=== PATIENT | female | born 1955 | race Caucasian/White ===

== ENCOUNTER 2022-12-03 14:31 | Emergency (ER) | payer MEDICARE, OTHER ==
[2022-12-03 14:47] VITALS: RESP 18; TEMP 98.2
[2022-12-03 15:34] LABS: Basophils % (A) 1 %; Eosinophils # (A) 0.2 k/uL (0-0.7); Eosinophils % (A) 3 %; HCT 38.6 % (34.0-46.0); HGB 13.2 gm/dL (11.4-16.0); Lymphocytes # (A) 2.3 k/uL (1.0-4.8); Lymphocytes % (A) 39 %; MCH 33.6 pg (25.0-35.0); MCHC 34.2 g/dL (31.0-37.0); MCV 98.1 fL (80.0-100.0); Mean Platelet Volume 7.4; Monocytes # (A) 0.3 k/uL (0-1.0); Monocytes % (A) 6 %; Neutrophils # (A) 2.9 k/uL (1.3-7.7); Neutrophils % (A) 49 %; Platelet Count 162 k/uL (150-450); RBC 3.93 m/uL (3.80-5.40); RDW 13.1 % (11.5-15.5); WBC 5.8 k/uL (3.8-10.6)
[2022-12-03] MEDS ORDERED: oxyCODONE-APAP 10-325MG 1 EACH TAB PO STA (15:43)
[2022-12-03 15:45] LABS: ALT 13 U/L (4-34); AST 21 U/L (14-36); African American GFR (CKD) >90 (>60 ml/min/1.73 sqM); Albumin 3.7 g/dL (3.5-5.0); Alkaline Phosphatase 64 U/L (38-126); Anion Gap 4 mmol/L; Blood Urea Nitrogen 10 mg/dL (7-17); Calcium 8.7 mg/dL (8.4-10.2); Carbon Dioxide 30 mmol/L (22-30); Chloride 101 mmol/L (98-107); Glucose 86 mg/dL (74-99); Non-African American GFR(CKD) >90 (>60 ml/min/1.73 sqM); Potassium 4.1 mmol/L (3.5-5.1); Sodium 135 mmol/L (137-145); Total Bilirubin 0.8 mg/dL (0.2-1.3); Total Protein 6.2 g/dL (6.3-8.2)
--- NOTE | 2022-12-03 15:55 | ED ---
General Adult HPI - General Chief complaint: Chest Pain Stated complaint: Chest Pain Time Seen by Provider: 12/03/22 15:01 Source: EMS Mode of arrival: EMS Limitations: no limitations - History of Present Illness Initial comments: This is a 67-year-old female with no past medical history presented to the emergency department for increasing blood pressure and chest pressure that lasted of the last 1-1/2 months. The patient noted that her blood pressure did increase this morning and she did call EMS to be taken to the emergency department. On evaluation, the patient stated that she had left-sided chest pressure that his been persistent over last 1-1/2 months. The patient had seen her primary care physician for this and did not require any further intervention at that time. The patient stated that she will he came to emergency Department because of her increased blood pressure. The patient stated that her just recently 2 to months ago when she has been going to a significant amount of stress with family and having to move out of her home. The patient was otherwise resting in bed comfortably without any acute distress. - Related Data Allergies Allergy/AdvReac Type Severity Reaction Status Date / Time Sulfa (Sulfonamide AdvReac Swelling Verified 12/03/22 15:53 Antibiotics) Review of Systems ROS Statement: Those systems with pertinent positive or pertinent negative responses have been documented in the HPI. ROS Other: All systems not noted in ROS Statement are negative. Past Medical History Past Medical History: No Reported History History of Any Multi-Drug Resistant Organisms: None Reported Past Surgical History: Back Surgery Past Psychological History: No Psychological Hx Reported Smoking Status: Current every day smoker Past Alcohol Use History: Rare Past Drug Use History: Marijuana General Exam Limitations: no limitations General appearance: alert, in no apparent distress Head exam: Present: atraumatic, normocephalic, normal inspection Eye exam: Present: normal appearance, PERRL Pupils: Present: normal accommodation ENT exam: Present: normal exam, normal oropharynx, mucous membranes moist Neck exam: Present: normal inspection, full ROM Respiratory exam: Present: normal lung sounds bilaterally. Absent: respiratory distress, chest wall tenderness Cardiovascular Exam: Present: regular rate, normal rhythm, normal heart sounds GI/Abdominal exam: Present: soft, normal bowel sounds Extremities exam: Present: normal inspection, full ROM Back exam: Present: normal inspection, full ROM Neurological exam: Present: alert, oriented X3, CN II-XII intact Psychiatric exam: Present: normal affect, normal mood Skin exam: Present: warm, dry Course Vital Signs 12/03/22 12/03/22 14:36 16:23 Temperature 98.2 F Pulse Rate 50 L 62 Respiratory 18 18 Rate Blood Pressure 191/82 174/95 O2 Sat by Pulse 98 99 Oximetry EKG Findings - EKG Comments: EKG Findings:: An EKG was obtained and was interpreted by myself showing a rate of 51, MT interval 154, QR protestant of 86 and QTC of 443. This EKG showed a sinus bradycardia with no ST segment elevation or depression noted. Medical Decision Making - Medical Decision Making Was pt. sent in by a medical professional or institution (, PA, GARAGE DOOR SERVICE TECHNICIAN, urgent care, hospital, or snf...) When possible be specific @ -No Did you speak to anyone other than the patient for history (EMS, parent, family, police, friend...)? What history was obtained from this source @ -No Did you review nursing and triage notes (agree or disagree)? Why? @ -I reviewed and agree with nursing and triage notes Were old charts reviewed (outside hosp., previous admission, EMS record, old EKG, old radiological studies, urgent care reports/EKG's, snf records)? Report findings @ -No old charts were reviewed Differential Diagnosis (chest pain, altered mental status, abdominal pain women, abdominal pain men, vaginal bleeding, weakness, fever, dyspnea, syncope, headache, dizziness, GI bleed, back pain, seizure, CVA, palpatations, mental health)? @ -ACS, chest wall muscle strain, stress, anxiety EKG interpreted by me (3pts min.). @ -As above X-rays interpreted by me (1pt min.). @ -Chest x-ray was obtained and was interpreted by myself showing no acute process. CT interpreted by me (1pt min.). @ -None done U/S interpreted by me (1pt. min.). @ -None done What testing was considered but not performed or refused? (CT, X-rays, U/S, labs)? Why? @ -None What meds were considered but not given or refused? Why? @ -None Did you discuss the management of the patient with other professionals (professionals i.e. , PA, GARAGE DOOR SERVICE TECHNICIAN, lab, RT, psych nurse, social services manager, payment processor, teacher, chief green officer, rifle case repairer)? Give summary @ -No Was smoking cessation discussed for >3mins.? @ -No Was critical care preformed (if so, how long)? @ -No Were there social determinants of health that impacted care today? How? (Homelessness, low income, unemployed, alcoholism, drug addiction, transportation, low edu. Level, literacy, decrease access to med. care, alf, rehab)? @ -No Was there de-escalation of care discussed even if they declined (Discuss DNR or withdrawal of care, Hospice)? DNR status @ -No What co-morbidities impacted this encounter? (DM, HTN, Smoking, COPD, CAD, Cancer, CVA, ARF, Chemo, Hep., AIDS, mental health diagnosis, sleep apnea, morbid obesity)? @ -None Was patient admitted / discharged? Hospital course, mention meds given and route, prescriptions, significant lab abnormalities, going to OR and other pert inent info. @ -The patient was seen and evaluated emergency department. On physical exam, the patient was resting in bed without any acute distress. Initially, the patient was hypertensive and bradycardic however on my evaluation had become normotensive as well as normal heart rate. The patient remained stable and workup was negative. Due to the patient's length of symptoms including one and a half months of chest discomfort in the setting of increased stress and anxiety, it was likely stress-related and was not related to her heart as an etiology for her chest discomfort. The patient was advised to follow-up with her primary care physician and was given information for cardiology to follow-up as an outpatient. The patient did receive her home dose of Percocet and a reevaluation stated that her symptoms had completely resolved. The patient denied any other acute pain or complaints and understood these instructions. The patient was discharged home in stable condition. Undiagnosed new problem with uncertain prognosis? @ -No Drug Therapy requiring intensive monitoring for toxicity (Heparin, Nitro, Insu mynor, Cardizem)? @ -No Were any procedures done? @ -No Diagnosis/symptom? @ -Chest pain, NOS Acute, or Chronic, or Acute on Chronic? @ -Chronic Uncomplicated (without systemic symptoms) or Complicated (systemic symptoms)? @ -Uncomplicated Side effects of treatment? @ -No Exacerbation, Progression, or Severe Exacerbation? @ -No Poses a threat to life or bodily function? How? (Chest pain, USA, VT, pneumonia, PE, COPD, DKA, ARF, appy, cholecystitis, CVA, Diverticulitis, Homicidal, Suicidal, threat to staff... and all critical care pts) @ -No - Lab Data Result diagrams: 12/03/22 15:20 12/03/22 15:20 Lab Results 12/03/22 12/03/22 12/03/22 Range/Units 15:20 15:20 15:20 WBC 5.8 (3.8-10.6) k/uL RBC 3.93 (3.80-5.40) m/uL Hgb 13.2 (11.4-16.0) gm/dL Hct 38.6 (34.0-46.0) % MCV 98.1 (80.0-100.0) fL MCH 33.6 (25.0-35.0) pg MCHC 34.2 (31.0-37.0) g/dL RDW 13.1 (11.5-15.5) % Plt Count 162 (150-450) k/uL MPV 7.4 Neutrophils % 49 % Lymphocytes % 39 % Monocytes % 6 % Eosinophils % 3 % Basophils % 1 % Neutrophils # 2.9 (1.3-7.7) k/uL Lymphocytes # 2.3 (1.0-4.8) k/uL Monocytes # 0.3 (0-1.0) k/uL Eosinophils # 0.2 (0-0.7) k/uL Basophils # 0.0 (0-0.2) k/uL Sodium 135 L (137-145) mmol/L Potassium 4.1 (3.5-5.1) mmol/L Chloride 101 (98-107) mmol/L Carbon Dioxide 30 (22-30) mmol/L Anion Gap 4 mmol/L BUN 10 (7-17) mg/dL Creatinine 0.51 L (0.52-1.04) mg/dL Est GFR (CKD-EPI)AfAm >90 (>60 ml/min/1.73 sqM) Est GFR (CKD-EPI)NonAf >90 (>60 ml/min/1.73 sqM) Glucose 86 (74-99) mg/dL Calcium 8.7 (8.4-10.2) mg/dL Magnesium 2.0 (1.6-2.3) mg/dL Total Bilirubin 0.8 (0.2-1.3) mg/dL AST 21 (14-36) U/L ALT 13 (4-34) U/L Alkaline Phosphatase 64 (38-126) U/L Troponin I <0.012 (0.000-0.034) ng/mL NT-Pro-B Natriuret Pep pg/mL Total Protein 6.2 L (6.3-8.2) g/dL Albumin 3.7 (3.5-5.0) g/dL 12/03/22 Range/Units 15:20 WBC (3.8-10.6) k/uL RBC (3.80-5.40) m/uL Hgb (11.4-16.0) gm/dL Hct (34.0-46.0) % MCV (80.0-100.0) fL MCH (25.0-35.0) pg MCHC (31.0-37.0) g/dL RDW (11.5-15.5) % Plt Count (150-450) k/uL MPV Neutrophils % % Lymphocytes % % Monocytes % % Eosinophils % % Basophils % % Neutrophils # (1.3-7.7) k/uL Lymphocytes # (1.0-4.8) k/uL Monocytes # (0-1.0) k/uL Eosinophils # (0-0.7) k/uL Basophils # (0-0.2) k/uL Sodium (137-145) mmol/L Potassium (3.5-5.1) mmol/L Chloride (98-107) mmol/L Carbon Dioxide (22-30) mmol/L Anion Gap mmol/L BUN (7-17) mg/dL Creatinine (0.52-1.04) mg/dL Est GFR (CKD-EPI)AfAm (>60 ml/min/1.73 sqM) Est GFR (CKD-EPI)NonAf (>60 ml/min/1.73 sqM) Glucose (74-99) mg/dL Calcium (8.4-10.2) mg/dL Magnesium (1.6-2.3) mg/dL Total Bilirubin (0.2-1.3) mg/dL AST (14-36) U/L ALT (4-34) U/L Alkaline Phosphatase (38-126) U/L Troponin I (0.000-0.034) ng/mL NT-Pro-B Natriuret Pep 200 pg/mL Total Protein (6.3-8.2) g/dL Albumin (3.5-5.0) g/dL Disposition Clinical Impression: Chest pain Disposition: HOME SELF-CARE Condition: Stable Instructions (If sedation given, give patient instructions): Chest Pain (ED) Is patient prescribed a controlled substance at d/c from ED?: No Referrals: Jose Erickson MD [Primary Care Provider] - 1-2 days Venu Posadas MD [STAFF PHYSICIAN] - 1-2 days Time of Disposition: 16:30
--- NOTE | 2022-12-03 16:29 | XR ---
EXAMINATION TYPE: XR chest 2V DATE OF EXAM: 12/03/2022 COMPARISON: None INDICATION: Chest discomfort and history of increased stress and anxiety TECHNIQUE: Frontal and lateral views of the chest are obtained. FINDINGS: The heart size is normal. The pulmonary vasculature is normal. The lungs are clear. IMPRESSION: 1. No acute pulmonary process.
[2022-12-03 17:11] VITALS: BP 166/92; PULSE 71
== END 2022-12-03 17:16 | disposition home or self-care (01) ==
LOC: EC 14:31
DX: R07.89 Other chest pain (principal); I10 Essential (primary) hypertension; F12.90 Cannabis use, unspecified, uncomplicated; F17.200 Nicotine dependence, unspecified, uncomplicated; Z88.2 Allergy status to sulfonamides
CPT/HCPCS: 36415; 71046; 80053; 83735; 83880; 84484; 85025; 93005; 99285